=== PATIENT | female | born 2000 | race Asian ===

== ENCOUNTER 2020-03-17 16:38 | Emergency (ER) | payer OTHER ==
--- NOTE | 2020-03-17 16:53 | ER Document Report ---
ED Medical Screen (RME) - General Chief Complaint: Pelvic Pain Stated Complaint: ABDOMINAL PAIN Time Seen by Provider: 03/17/20 16:51 Mode of Arrival: Ambulatory Information source: Patient Notes: 20-year-old female presented to ED for complaint of severe 5/5 sharp stabbing pain in the suprapubic/pelvic area about 310 this afternoon. She states her last menstrual period was February 23. She states she has no past medical history, no surgical history, she denies any smoking drinking or use of illicit drugs. She states the pain lasted for a little while but now she is having a level 1 dull aching pain to the same area. I have greeted and performed a rapid initial assessment of this patient. A comprehensive ED assessment and evaluation of the patient, analysis of test results and completion of medical decision making process will be conducted by an additional ED providers. - Related Data Allergies/Adverse Reactions: No Known Allergies Allergy (Verified 03/17/20 16:47) Past Medical History - Social History Frequency of alcohol use: None Drug Abuse: None Physical Exam - Vital signs Vitals: Temp Pulse Resp BP Pulse Ox 98.2 F 114 H 18 121/81 100 03/17/20 16:47 03/17/20 16:47 03/17/20 16:47 03/17/20 16:47 03/17/20 16:47 Course - Vital Signs Vital signs: Temp Pulse Resp BP Pulse Ox 98.2 F 114 H 18 121/81 100 03/17/20 16:47 03/17/20 16:47 03/17/20 16:47 03/17/20 16:47 03/17/20 16:47
[2020-03-17 17:24] LABS: ABSOLUTE LYMPHOCYTES (AUTO) 1.2 10^3/uL (0.5-4.7); ABSOLUTE MONOCYTES (AUTO) 0.4 10^3/uL (0.1-1.4); ABSOLUTE NEUT (AUTO) 4.4 10^3/uL (1.7-8.2); BASOPHILS % (AUTO) 0.5 % (0-2); EOSINOPHILS % (AUTO) 0.4 % (0-6); HEMOGLOBIN 10.2 g/dL (12.0-15.5); LYMPHOCYTES % (AUTO) 20.4 % (13-45); MEAN CORPUSCULAR VOLUME 68 fl (80-97); PLATELET COUNT 298 10^3/uL (150-450); RED BLOOD COUNT 4.88 10^6/uL (3.72-5.28); RED CELL DISTRIBUTION WIDTH 17.2 % (11.5-14.0); SEGMENTED NEUTROPHILS % (AUTO) 72.7 % (42-78); TOTAL CELLS COUNTED % (AUTO) 100 %; WHITE BLOOD COUNT 6.1 10^3/uL (4.0-10.5)
[2020-03-17 17:30] LABS: APPEARANCE,URINE SLIGHTLY-CLOUDY; BILIRUBIN,URINE NEGATIVE (NEGATIVE); COLOR,URINE YELLOW; GLUCOSE, URINE NEGATIVE (NEGATIVE); KETONES,URINE NEGATIVE (NEGATIVE); PROTEIN,URINE 30 mg/dL (NEGATIVE); URINE SPECIFIC GRAVITY 1.028; UROBILINOGEN,URINE NEGATIVE mg/dL (<2.0)
[2020-03-17 17:50] LABS: ALBUMIN 4.8 g/dL (3.5-5.0); ALKALINE PHOSPHATASE 56 U/L (38-126); ANION GAP 11 (5-19); ASPARTATE AMINO TRANSFERASE 20 U/L (14-36); BILIRUBIN,TOTAL 0.2 mg/dL (0.2-1.3); BLOOD UREA NITROGEN 13 mg/dL (7-20); CALCIUM 9.3 mg/dL (8.4-10.2); CARBON DIOXIDE 24 mmol/L (22-30); CHLORIDE 101 mmol/L (98-107); GLUCOSE 110 mg/dL (75-110); POTASSIUM 3.7 mmol/L (3.6-5.0); TOTAL PROTEIN 8.4 g/dL (6.3-8.2)
--- NOTE | 2020-03-17 18:10 | ER Document Report ---
ED GI/ - General Chief Complaint: Pelvic Pain Stated Complaint: ABDOMINAL PAIN Time Seen by Provider: 03/17/20 16:51 Mode of Arrival: Ambulatory Information source: Patient Notes: NATE HPI: 20-year-old female presented to ED for complaint of severe 5/5 sharp stabbing pain in the suprapubic/pelvic area about 310 this afternoon. She states her last menstrual period was February 23. She states she has no past medical history, no surgical history, she denies any smoking drinking or use of illicit drugs. She states the pain lasted for a little while but now she is having a level 1 dull aching pain to the same area. - Related Data Allergies/Adverse Reactions: No Known Allergies Allergy (Verified 03/17/20 16:47) Past Medical History - General Information source: Patient Last Menstrual Period: February - Social History Smoking Status: Never Smoker Frequency of alcohol use: None Drug Abuse: None Family History: Reviewed & Not Pertinent Patient has suicidal ideation: No Patient has homicidal ideation: No - Medical History Medical History: Negative Surgical Hx: Negative - Immunizations Immunizations up to date: Yes Review of Systems - Review of Systems Constitutional: No symptoms reported EENT: No symptoms reported Cardiovascular: No symptoms reported Respiratory: No symptoms reported Gastrointestinal: Abdominal pain Genitourinary: No symptoms reported Female Genitourinary: No symptoms reported Musculoskeletal: No symptoms reported Skin: No symptoms reported Hematologic/Lymphatic: No symptoms reported Neurological/Psychological: No symptoms reported Physical Exam - Vital signs Vitals: Temp Pulse Resp BP Pulse Ox 98.2 F 114 H 18 121/81 100 03/17/20 16:47 03/17/20 16:47 03/17/20 16:47 03/17/20 16:47 03/17/20 16:47 - Notes Notes: PHYSICAL EXAMINATION: GENERAL: Well-appearing, well-nourished and in no acute distress. HEAD: Atraumatic, normocephalic. EYES: Pupils equal round and reactive to light, extraocular movements intact, conjunctiva are normal. ENT: Nares patent, oropharynx clear without exudates. Moist mucous membranes. NECK: Normal range of motion, supple without lymphadenopathy LUNGS: Breath sounds clear to auscultation bilaterally and equal. No wheezes rales or rhonchi. HEART: Regular rate and rhythm without murmurs ABDOMEN: Soft, nontender, nondistended abdomen. No guarding, no rebound. No masses appreciated. Female : deferred Musculoskeletal: Normal range of motion, no pitting or edema. No cyanosis. NEUROLOGICAL: Cranial nerves grossly intact. Normal speech, normal gait. Normal sensory, motor exams PSYCH: Normal mood, normal affect. SKIN: Warm, Dry, normal turgor, no rashes or lesions noted. Course - Re-evaluation Re-evalutation: Laboratory 03/17/20 03/17/20 03/17/20 17:03 17:03 17:03 WBC 6.1 RBC 4.88 Hgb 10.2 L Hct 33.0 L MCV 68 L MCH 21.0 L MCHC 31.0 L RDW 17.2 H Plt Count 298 Lymph % (Auto) 20.4 [place] % (Auto) 6.0 Eos % (Auto) 0.4 Baso % (Auto) 0.5 Absolute Neuts (auto) 4.4 Absolute Lymphs (auto) 1.2 Absolute Monos (auto) 0.4 Absolute Eos (auto) 0.0 Absolute Basos (auto) 0.0 Seg Neutrophils % 72.7 Sodium 135.9 L Potassium 3.7 Chloride 101 Carbon Dioxide 24 Anion Gap 11 BUN 13 Creatinine 0.67 Est GFR ( Amer) > 60 Est GFR (MDRD) Non-Af > 60 Glucose 110 Calcium 9.3 Total Bilirubin 0.2 Direct Bilirubin 0.0 Neonat Total Bilirubin Not Reportable Neonat Direct Bilirubin Not Reportable Neonat Indirect Bili Not Reportable AST 20 ALT 7 Alkaline Phosphatase 56 Total Protein 8.4 H Albumin 4.8 Beta HCG, Quant < 2.39 Total Beta HCG NEGATIVE Urine Color YELLOW Urine Appearance SLIGHTLY-CLOUDY Urine pH 5.0 Ur Specific Means 1.028 Urine Protein 30 H Urine Glucose (UA) NEGATIVE Urine Ketones NEGATIVE Urine Blood NEGATIVE Urine Nitrite (Reflex) NEGATIVE Urine Bilirubin NEGATIVE Urine Urobilinogen NEGATIVE Leukocyte Esterase Rfl LARGE H Urine RBC (Auto) 18 Urine Bacteria (Auto) TRACE Urine WBC (Reflex) 10 Squamous Epi Cells Auto 9 Urine Mucus (Auto) MANY Urine Ascorbic Acid NEGATIVE Patient's work-up today has been unremarkable. Patient reports pain has improved. Patient declines pelvic exam and declines transvaginal ultrasound. Patient now reports that she had one episode of diarrhea yesterday so she actually came to the emergency department because she wants a COVID-19 test. Patient has had no respiratory symptoms no fever. Patient has not had any recent travel or any known exposure to any COVID-19 positive persons. Patient will not be COVID-19 test at this time. Patient will be discharged home with ED return precautions for her abdominal pain. - Vital Signs Vital signs: Temp Pulse Resp BP Pulse Ox 99.0 F 98 18 119/74 100 03/17/20 18:43 03/17/20 18:43 03/17/20 16:47 03/17/20 18:43 03/17/20 18:43 - Laboratory Result Diagrams: 03/17/20 17:03 03/17/20 17:03 Laboratory results interpreted by me: 03/17/20 03/17/20 03/17/20 17:03 17:03 17:03 Hgb 10.2 L Hct 33.0 L MCV 68 L MCH 21.0 L MCHC 31.0 L RDW 17.2 H Sodium 135.9 L Total Protein 8.4 H Urine Protein 30 H Leukocyte Esterase Rfl LARGE H Discharge - Discharge Clinical Impression: Pelvic pain Abdominal pain Qualifiers: Abdominal location: lower abdomen, unspecified Qualified Code(s): R10.30 - Lower abdominal pain, unspecified UTI (urinary tract infection) Qualifiers: Urinary tract infection type: site unspecified Hematuria presence: without h ematuria Qualified Code(s): N39.0 - Urinary tract infection, site not specified Condition: Stable Disposition: HOME, SELF-CARE Instructions: Abdominal Pain ([facility]), Pelvic Pain ([facility]) Additional Instructions: Your work-up today was reassuring. Your blood work was normal. Your urine did have some bacteria in it so we will start you on some antibiotics while waiting for a culture to come back. You declined a pelvic exam and a transvaginal ultrasound since your pain has completely resolved. If you have worsening pain, development of fever, nausea, vomiting or diarrhea please return to the emergency department. Prescriptions: Cephalexin [Keflex] 500 mg PO BID #10 capsule
[2020-03-17 18:44] VITALS: BP 119/74
== END 2020-03-17 18:45 | disposition home or self-care (01) ==
LOC: ER 16:38
DX: N39.0 Urinary tract infection, site not specified (principal); R10.2 Pelvic and perineal pain
CPT/HCPCS: 36415; 80053; 81001; 84702; 85025; 99284